=== PATIENT | female | born 1985 | race Hispanic/Latino ===

== ENCOUNTER 2018-11-10 05:28 | Emergency (ER) | payer BC ==
--- OUTSIDE RECORDS SUMMARY | 2018-11-10 05:31 | XMS REPORT | Summary of Care ---
:1985 Author Organization [facility] Address [id number] [place] [id number]- Encounter HQ Nunu_luis carlos(FIN) [id number] Date(s): 01/08/17 - 01/08/[address] [phone] [phone] Discharge Disposition: Home or Self Care Attending Physician: Matt Troy MD Admitting Physician: Matt Troy MD Vital Signs Most recent to oldest [Reference Range]: 1 Height 167.64 cm (01/08/17 1:02 PM) Temperature Oral [96.4-99.1 DegF] 97.8 DegF (01/08/17 12:05 PM) Blood Pressure [90-140/60-90 mmHg] 122/69 mmHg (01/08/17 12:05 PM) Respiratory Rate [14-20 BRMIN] 16 BRMIN (01/08/17 12:05 PM) Peripheral Pulse Rate [60-100 bpm] 80 bpm (01/08/17 12:05 PM) Weight 90.909 kg (01/08/17 1:02 PM) Body Mass Index 32.35 m2 (01/08/17 1:02 PM) Problem List Condition Effective Dates Status Health Status Informant (Confirmed) 03/13/16 Active (Confirmed) 11/04/09 - 07/28/10 Resolved (Confirmed) 01/10/05 - 10/31/05 Resolved Allergies, Adverse Reactions, Alerts Substance Reaction Severity Status NKDA Active Medications No data available for this section Results No data available for this section Immunizations No data available for this section Procedures Procedure Date Related Diagnosis Body Site Tonsillectomy 01/23/98 Social History Social History Type Response Substance Abuse Use: None. Alcohol Past Smoking Status Former smoker; Started at age: 15.0; Previous treatment: None; Ready to change: Yes; Concerns about tobacco use in household: No; Exposure to Tobacco Smoke None; Cigarette Smoking Last 365 Days Yes; Reg Smoking Cessation Counseling No Assessment and Plan No data available for this section
--- OUTSIDE RECORDS SUMMARY | 2018-11-10 05:31 | XMS REPORT | Summary of Care ---
:1985 Author Organization [facility] Address [address] [place] [id number]- Encounter HQ Encntr_alias(FIN) [id number] Date(s): 10/02/16 - 10/31/[address] [phone] [phone] Discharge Disposition: Home or Self Care Attending Physician: Balwinder Lema MD Referring Physician: Rian Lema DDS Vital Signs No data available for this section Problem List No data available for this section Allergies, Adverse Reactions, Alerts No data available for this section Medications No data available for this section Results No data available for this section Immunizations No data available for this section Procedures No data available for this section Social History No data available for this section Assessment and Plan No data available for this section
--- OUTSIDE RECORDS SUMMARY | 2018-11-10 05:31 | XMS REPORT | Continuity of Care Document ---
:1985 Author Organization Interface Problems Problem Status Onset Classification Date Comments Source Date Reported 12/16, 02/17/17, 38 Active 02/08/20 [facility] WEEKS 5 17 [place] DAYS/HYPERTENSIO WEEKLY Active 01/29/20 [facility] 17 [place] NST Active 01/09/20 [facility] 17 [place] GROWTH, SPINE, Active 12/25/19 [facility] CRON 17 [place] HYPERTENTION SCREEN FOR Active 09/14/20 [facility] ANOMALIES 16 [place] Resolved 03/13/20 Problem 03/02/2017 [facility] 16 Hypertension Resolved 09/16/19 Problem 03/02/2017 [place] 16 Pre-eclampsia Active Problem 03/02/2017 [facility] added to pre-existing hypertension Final: Encounter 02/13/2017 [facility] for full-term uncomplicated delivery ENCOUNTER FOR [facility] [place] DELIVERY WITHOUT ANEMIA, Active [facility] 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 [facility] 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 [facility] (PRIMARY) [place] HYPERTENSION ENCOUNTER FOR [facility] FULL-TERM [place] UNCOMPLICATED DE Medications Medication Details Route Status Patient Ordering Order Source Instructions Provider Date Acetaminophen 300 1 tab, PO, Q6H, Active 02/10/ MG / Codeine PRN Pain, X 7 2017 [facility] Phosphate 30 MG day, # 28 tab, Oral Tablet 0 Refill(s) [Tylenol with Codeine #3] ibuprofen 600 mg 600 mg=1 tab, Active oral tablet PO, Q6H, PRN 2017 [facility] Pain Score 1-5, # 30 tab, 0 Refill(s) ferrous sulfate 325 mg=1 tab, Active 02/10/ 325 mg oral PO, BID, # 60 2017 [facility] enteric coated tab, 0 tablet Refill(s) Docusate Sodium 100 mg=1 cap, Active 02/10/ 100 MG Oral PO, BID, # 60 2017 [facility] Capsule [Colace] cap, 0 Refill(s) Acetaminophen 325 1 tab, PO, Q4H, Inactive 02/10/ MG / Hydrocodone PRN Pain Score 2017 [place] Bitartrate 10 MG 7-10, X 14 day, Oral Tablet # 84 tab, 0 Refill(s) labetalol 200 mg 200 mg=1 tab, Active oral tablet PO, Q12H, # 60 2016 [place] tab, 1 Refill(s) 1 tab, Route: No Longer Multivitamins oral PO, Drug Form: Active 2016 [place] tablet TAB, Dosing Weight 100, kg, Daily, Start date: 02/09/17 9:00:00 CDT, Duration: 30 day, Stop date: 03/10/17 9:00:00 CDT Docusate Sodium 100 mg, 1 cap, No Longer 100 MG Oral Route: PO, Drug Active 2016 [place] Capsule [Colace] form: CAP, BID, Dosing Weight 100, kg, Start date: 02/09/17 9:00:00 CDT, Duration: 30 day, Stop date: 03/10/17 17:00:00 CDTNotes: (Same as: Colace) (Do Not Crush) Saline Flush 0.9% 10 ml, Route: No Longer IVP, Drug Form: Active 2016 [facility] INJ, Dosing Weight 100, kg, Q12H, Start date: 02/08/17 21:00:00 CDT, Duration: 30 day, Stop date: 03/10/17 9:00:00 CDTNotes: (Same as: BD Posiflush) Labetalol 200 mg, 1 tab, No Longer Route: PO, Drug Active 2016 [place] form: TAB, Q12H, Dosing Weight 100, kg, Start date: 02/08/17 21:00:00 CDT, Duration: 30 day, Stop date: 03/10/17 9:00:00 CDTNotes: With food. (Same as:Trandate, Normodyne) Ibuprofen 600 mg, 1 tab, No Longer Route: PO, Drug Active 2016 [place] form: TAB, Q6H, Dosing Weight 100, kg, Start date: 02/08/17 18:00:00 CDT, Duration: 30 day, Stop date: 03/10/17 12:00:00 CDTNotes: (Same as: Motrin) "Do Not Crush" Take with food. Acetaminophen 1,000 mg, 100 No Longer mL, Route: IV, Active 2016 [place] Drug form: INJ, Q6H, Dosing Weight 100, kg, Start date: 02/08/17 18:00:00 CDT, Duration: 24 hr, Stop date: 02/09/17 12:00:00 CDTNotes: Infuse over 15 minutes Do not exceed 4gm/day of acetaminophen MEDICATION WASTE Product Size: 1000 mg Product Wasted: ___ mg ferrous sulfate 325 mg, 1 tab, No Longer Route: PO, Drug Active 2016 [place] form: ECTAB, BID, Dosing Weight 100, kg, Start date: 02/08/17 17:00:00 CDT, Duration: 30 day, Stop date: 03/10/17 9:00:00 CDTNotes: Give with food. "Do Not Crush" Acetaminophen 1,000 mg, 2 Inactive tab, Route: PO, 2016 [place] Drug form: TAB, Q6H, Dosing Weight 100, kg, Priority: NOW, Start date: 02/08/17 17:00:00 CDT, Duration: 24 hr, Stop date: 02/09/17 12:00:00 CDTNotes: Max acetaminophen 4000 mg/day (4 gm/day). (Same as: Tylenol Extra Strength) Hydrocodone 1 tab, Route: No Longer Bitartrate 7.5 MG PO, Drug Form: Active 2016 [place] / Ibuprofen 200 MG TAB, Dosing Oral Tablet Weight 100, kg, [Vicoprofen] Q6H, PRN Pain Score 7-10, Start date: 02/08/17 17:00:00 CDT, Duration: 24 hr, Stop date: 02/09/17 16:59:00 CDTNotes: (Same as: Vicoprofen) Ketorolac 30 mg, 1 mL, No Longer Route: IVP, Active 2016 [place] Drug form: INJ, Q6H, Dosing Weight 100, kg, PRN Pain Score 4-6, Start date: 02/08/17 17:00:00 CDT, Duration: 24 hr, Stop date: 02/09/17 16:59:00 CDTNotes: (Same as:Toradol) IV bolus must be given >15 seconds. Give IM administration slowly and deeply into the muscle. Not for use > 4 days MEDICATION WASTE Product Size: 30 mg Product Wasted: ___ mg Oxycodone 10 mg, 2 tab, No Longer MH Hydrochloride 5 MG Route: PO, Drug Active 2016 [place] Oral Tablet form: TAB, Q4H, Dosing Weight 100, kg, PRN Pain Score 7-10, Start date: 02/08/17 17:00:00 CDT, Duration: 30 day, Stop date: 03/10/17 16:59:00 CDTNotes: (Same as: Roxicodone) Oxycodone 5 mg, 5 mL, No Longer Hydrochloride 1 Route: NG, Drug Active 2016 [place] MG/ML Oral form: LIQ, Q4H, Solution Dosing Weight 100, kg, PRN Pain Score 4-6, Start date: 02/08/17 17:00:00 CDT, Duration: 30 day, Stop date: 03/10/17 16:59:00 CDTNotes: (Same as: 'Roxicodone) Meperidine 12.5 mg, 0.5 Inactive mL, Route: IVP, 2016 [place] Drug form: INJ, ONCE, Dosing Weight 100, kg, Start date: 02/08/17 17:00:00 CDT, Stop date: 02/08/17 17:00:00 CDTNotes: (Same as: Demerol) "Use Precaution in Elderly, Seizure disorders, and Renal impairment" Naloxone 0.1 mg, 0.25 No Longer MH mL, Route: Active 2016 [place] SUB-Q, Drug form: INJ, Q6H, Dosing Weight 100, kg, PRN Itching, Start date: 02/08/17 17:00:00 CDT, Duration: 24 hr, Stop date: 02/09/17 16:59:00 CDTNotes: Same as Narcan Diphenhydramine 12.5 mg, 0.5 No Longer MH tab, Route: PO, Active 2016 [place] Drug form: TAB, Q6H, Dosing Weight 100, kg, PRN Itching, Start date: 02/08/17 17:00:00 CDT, Duration: 30 day, Stop date: 03/10/17 16:59:00 CDT Nalbuphine 2 mg, 0.1 mL, No Longer Route: IVP, Active 2016 [place] Drug form: INJ, Q2H, Dosing Weight 100, kg, PRN Itching, Start date: 02/08/17 17:00:00 CDT, Duration: 5 doses or times, Stop date: Limited # of timesNotes: (Same As: Nubain) MEDICATION WASTE Product Size: 20 mg Product Wasted: ___ mg Hydromorphone 0.3 mg, 0.3 mL, No Longer Route: IVP, Active 2016 [place] Drug form: INJ, Q4H, Dosing Weight 100, kg, PRN Pain Score 7-10, Start date: 02/08/17 17:00:00 CDT, Duration: 30 day, Stop date: 03/10/17 16:59:00 CDTNotes: Same as: Dilaudid Ondansetron 4 mg, 2 mL, No Longer Route: IVP, Active 2016 [place] Drug form: INJ, Q6H, Dosing Weight 100, kg, PRN Nausea & Vomiting, Start date: 02/08/17 17:00:00 CDT, Duration: 24 hr, Stop date: 02/09/17 16:59:00 CDTNotes: (Same as: Zofran) MEDICATION WASTE Product Size: 4 mg Product Wasted: ___ mg Promethazine 6.25 mg, 0.25 No Longer mL, Route: Active 2016 [place] IVPB, Q6H, Dosing Weight 100, kg, PRN Nausea & Vomiting, Start date: 02/08/17 17:00:00 CDT, Duration: 24 hr, Stop date: 02/09/17 16:59:00 CDTNotes: Do not give IV push. (Same as: Phenergan) phenylephrine Route: IV, Drug Inactive (ANES) form: INJ, 2017 [place] ONCE, Stop date: 02/08/17 13:59:00 CDT Acetaminophen 325 1 tab, Route: No Longer MG / Hydrocodone PO, Drug Form: Active 2017 [place] Bitartrate 5 MG TAB, Dosing Oral Tablet Weight 100, kg, Q4H, PRN Pain Score 4-6, Start date: 02/08/17 13:55:00 CDT, Duration: 30 day, Stop date: 03/10/17 13:54:00 CDTNotes: (Same as: [place] 325/5) Do not exceed 4gm/day of acetaminophen. Saline Flush 0.9% 10 ml, Route: No Longer IVP, Drug Form: Active 2017 [place] INJ, Dosing Weight 100, kg, PRN, PRN Line Flush, Start date: 02/08/17 13:55:00 CDT, Duration: 30 day, Stop date: 03/10/17 13:54:00 CDTNotes: (Same as: BD Posiflush) Acetaminophen 325 1 tab, Route: No Longer MG / Hydrocodone PO, Drug Form: Active 2017 [place] Bitartrate 10 MG TAB, Dosing Oral Tablet Weight 100, kg, Q4H, PRN Pain Score 7-10, Start date: 02/08/17 13:55:00 CDT, Duration: 30 day, Stop date: 03/10/17 13:54:00 CDTNotes: Do not exceed 4gm/day of acetaminophen. (Same as: [place] 325/10) Simethicone 160 mg, 2 tab, No Longer Route: PO, Drug Active 2016 [place] form: CHE[place]AB, Q8H, Dosing Weight 100, kg, PRN Gas, Start date: 02/08/17 13:55:00 CDT, Duration: 30 day, Stop date: 03/10/17 13:54:00 CDTNotes: (Same as: Mylicon) Acetaminophen 650 mg, 2 tab, No Longer Route: PO, Drug Active 2016 [place] form: TAB, Q4H, Dosing Weight 100, kg, PRN Other -See Comment, Start date: 02/08/17 13:55:00 CDT, Duration: 30 day, Stop date: 03/10/17 13:54:00 CDTNotes: Do not exceed 4 gm/day. (Same as: Tylenol) zolpidem 5 mg, 1 tab, No Longer Route: PO, Drug Active 2016 [place] form: TAB, Bedtime, Dosing Weight 100, kg, PRN Insomnia, Start date: 02/08/17 13:55:00 CDT, Duration: 30 day, Stop date: 03/10/17 13:54:00 CDTNotes: (Same As: Ambien) lanolin topical 1 appl, Route: No Longer cream TOP, PRN, Drug Active 2016 [place] form: CRM, PRN Other -See Comment, Start date: 02/08/17 13:55:00 CDT, Duration: 30 day, Stop date: 03/10/17 13:54:00 CDT Docusate 100 mg, 1 cap, No Longer Route: PO, Drug Active 2016 [place] form: CAP, BID, Dosing Weight 100, kg, PRN Constipation, Start date: 02/08/17 13:55:00 CDT, Duration: 30 day, Stop date: 03/10/17 13:54:00 CDTNotes: (Same as: Colace) (Do Not Crush) Ondansetron 4 mg, 2 mL, No Longer Route: IVP, Active 2016 [place] Drug form: INJ, Q8H, Dosing Weight 100, kg, PRN Nausea & Vomiting, Start date: 02/08/17 13:55:00 CDT, Duration: 30 day, Stop date: 03/10/17 13:54:00 CDTNotes: (Same as: Zofran) MEDICATION WASTE Product Size: 4 mg Product Wasted: ___ mg Oxytocin 30 unit, 500 No Longer mL, Rate: 42 Active 2016 [place] ml/hr, Infuse over: 11.9 hr, Dosing Weight 100, kg, Route: IV, Total Volume: 500 mL, Start date: 02/08/17 13:55:00 CDT, Stop date: 02/10/17 13:54:00 CDT, Replace Every: 11.9 hr Calcium Chloride 1,000 mL, Rate: No Longer 0.0014 MEQ/ML / 125 ml/hr, Active 2016 [place] Potassium Chloride Infuse over: 8 0.004 MEQ/ML / hr, Route: IV, Sodium Chloride Dosing Weight 0.103 MEQ/ML / 100 kg, Total Sodium Lactate Volume: 1,000, 0.028 MEQ/ML Start date: Injectable 02/08/17 Solution 13:55:00 CDT, Duration: 30 day, Stop date: 03/10/17 13:54:00 CDT Bisacodyl 15 mg, 3 tab, No Longer Route: PO, Drug Active 2016 [place] form: ECTAB, Daily, Dosing Weight 100, kg, PRN Other -See Comment, Start date: 02/08/17 13:55:00 CDT, Duration: 30 day, Stop date: 03/10/17 13:54:00 CDTNotes: (Same As: Dulcolax, Correctol) (Do Not Crush) "Do Not Crush" hydromorphone Route: IV, Drug Inactive (ANES) form: INJ, 2016 [place] ONCE, Stop date: 02/08/17 13:29:00 CDT ondansetron (ANES) Route: IV, Drug Inactive form: INJ, 2016 [place] ONCE, Stop date: 02/08/17 13:29:00 CDT hydromorphone Route: Inactive (ANES) INTRATHECAL, 2016 [place] Drug form: INJ, ONCE, Stop date: 02/08/17 13:24:00 CDT bupivacaine (ANES) Route: IV, Drug Inactive Form: INJ, 2016 [place] ONCE, Stop date: 02/08/17 13:15:00 CDT oxytocin (ANES) Route: IV, Drug Inactive MH (ANES) form: SOLN, 2016 [place] Start date: 02/08/17 12:51:00 CDT, Stop date: 02/08/17 13:51:00 CDT ceFAZolin (ANES) Route: IV, Drug Inactive form: INJ, 2016 [place] ONCE, Stop date: 02/08/17 12:51:00 CDT LR 1000 mL INJ Route: IV, Inactive MH (ANES) Total Volume: 2016 [place] 1,000, Start date: 02/08/17 12:10:00 CDT, Stop date: 02/08/17 13:10:00 CDT Famotidine 20 mg, 2 mL, Inactive Route: IVP, 2016 [place] Drug form: INJ, ONCE, Dosing Weight 100, kg, Start date: 02/08/17 11:05:00 CDT, Duration: 1 doses or times, Stop date: 02/08/17 11:05:00 CDTNotes: (Same as: Pepcid) Can be dilute in 5-10cc NS IVP: Slow IV push over at least 2 minutes. Cefazolin 2 gm, 100 mL, Inactive Route: IVPB, 2016 [place] Drug form: INJ, ONCALL, Dosing Weight 100, kg, Start date: 02/08/17 11:00:00 CDT, Duration: 1 doses or times, ABX Indication: Surgical ProphylaxisNote s: Same as: Ancef Methylergonovine 0.2 mg, 1 mL, Inactive Route: IM, Drug 2016 [place] form: INJ, ONCALL, Dosing Weight 100, kg, Start date: 02/08/17 11:00:00 CDT, Duration: 30 day, Stop date: 03/10/17 10:59:00 CDTNotes: (Same as:Methergine) Carboprost 250 microgram, Inactive 1 mL, Route: 2016 [place] IM, Drug form: INJ, ONCALL, Dosing Weight 100, kg, Start date: 02/08/17 11:00:00 CDT, Duration: 30 day, Stop date: 03/10/17 10:59:00 CDTNotes: (Same As: Hemabate) Misoprostol 1,000 Inactive microgram, 5 2016 [place] tab, Route: AK, Drug form: TAB, ONCALL, Dosing Weight 100, kg, Start date: 02/08/17 11:00:00 CDT, Duration: 30 day, Stop date: 03/10/17 10:59:00 CDTNotes: (Same as:Cytotec) Take with food busPIRone 7.5 mg 7.5 mg=1 tab, No Longer oral tablet PO, Daily, 0 Active 2016 [place] Refill(s) labetalol 100 mg 100 mg=1 tab, No Longer oral tablet PO, BID, 0 Active 2016 [place] Refill(s) PNV-Total 1 cap, PO, Active Daily, 0 2016 [place] Refill(s) Morphine 2 mg, 1 mL, Inactive Route: IVP, 2016 [place] Drug form: INJ, Q2H, Dosing Weight 100, kg, PRN Pain Score 7-10, Start date: 02/08/17 10:30:00 CDT, Duration: 30 day, Stop date: 03/10/17 10:29:00 CDTNotes: (Same as:MORPhine Sulfate) Metoclopramide 10 mg, 2 mL, Inactive Route: IVP, 2016 [place] Drug form: INJ, Q6H, Dosing Weight 100, kg, PRN Nausea & Vomiting, Start date: 02/08/17 10:30:00 CDT, Duration: 30 day, Stop date: 03/10/17 10:29:00 CDTNotes: (Same as: Reglan) Ondansetron 4 mg, 2 mL, Inactive Route: IVP2016 [place] Drug form: INJ, Q8H, Dosing Weight 100, kg, PRN Nausea & Vomiting, Start date: 02/08/17 10:30:00 CDT, Duration: 30 day, Stop date: 03/10/17 10:29:00 CDTNotes: (Same as: Zofran) MEDICATION WASTE Product Size: 4 mg Product Wasted: ___ mg Citric Acid / 30 mL, Route: Inactive sodium citrate PO, Drug Form: 2016 [place] SOLN, Dosing Weight 100, kg, ONCE, Start date: 02/08/17 10:30:00 CDT, Duration: 1 doses or times, Stop date: 02/08/17 10:30:00 CDTNotes: (Same As: Bicitra) Terbutaline 0.25 mg, 0.25 Inactive mL, Route: 2016 [place] SUB-Q, Drug form: INJ, ONCALL, Dosing Weight 100, kg, PRN Other -See Comment, Start date: 02/08/17 10:30:00 CDT, Duration: 1 doses or times, Stop date: Limited # of timesNotes: DO NOT USE IN [employer] AREA (Same As: Kevin) Oxytocin 30 unit, 500 Inactive mL, Rate: 42 2017 [place] ml/hr, Infuse over: 11.9 hr, Dosing Weight 100, kg, Route: IV, Total Volume: 500 mL, Start date: 02/08/17 10:30:00 CDT, Duration: 1 doses or times, Stop date: 02/08/17 22:23:00 CDT, Replace Every: 11.9 hrNotes: (Same as: OXYTOCIN-D5LR) Calcium Chloride 1,000 mL, 1,000 Inactive 0.0014 MEQ/ML / ml/hr, Infuse 2016 [place] Potassium Chloride Over: 1 hr, 0.004 MEQ/ML / Route: IV, Sodium Chloride 1,000, Drug 0.103 MEQ/ML / form: INJ, Sodium Lactate ONCE, Dosing 0.028 MEQ/ML Weight 100 kg, Injectable Start date: Solution 02/08/17 10:30:00 CDT, Stop date: 02/08/17 10:30:00 CDT Allergies, Adverse Reactions, Alerts Substance Category Reaction Severity Reaction Status Date Comments Source type Reported Immunizations Immunization Date Given Site Status Last Updated Comments Source diphtheria/pertus 02/10/2017 Not Given [facility] sis, acel/tetanus adult measles/mumps/rub 02/10/2017 Not Given [facility] luke virus vaccine Results Order Name Results Value Reference Date Interpretation Comments Source Range HEMATOLOGY Segs 77.5 % 45.0 - 75.0 02/09 [facility] HEMATOLOGY Lymphocytes 11.8 % 20.0 - 40.0 02/09 [facility] HEMATOLOGY Monocytes 9.4 % 2.0 - 12.0 02/09 [place] HEMATOLOGY Eosinophils 0.8 % 0.0 - 4.0 02/09 [facility] HEMATOLOGY Basophils 0.5 % 0.0 - 1.0 02/09 [facility] HEMATOLOGY Segs-Bands # 11.9 K/CMM 1.5 - 8.1 02/09 [facility] HEMATOLOGY Monocytes # 1.4 K/CMM 0.0 - 0.8 02/09 [facility] HEMATOLOGY Eosinophils # 0.1 K/CMM 0.0 - 0.5 02/09 [facility] HEMATOLOGY Basophils # 0.1 K/CMM 0.0 - 0.2 02/09 [facility] HEMATOLOGY Lymphocytes # 1.8 K/CMM 1.0 - 5.5 02/09 [facility] HEMATOLOGY MPV 7.3 fL 7.4 - 10.4 02/09 [facility] HEMATOLOGY WBC X 10x3 15.3 K/CMM 3.7 - 10.4 02/09 [facility] HEMATOLOGY RBC X 10x6 3.79 M/CMM 4.20 - 5.40 02/09 [facility] HEMATOLOGY Hgb 10.5 g/dL 12.0 - 16.0 02/09 [facility] HEMATOLOGY MCH 27.7 pg 27.0 - 31.0 02/09 [facility] HEMATOLOGY MCV 84.1 fL 80.0 - 98.0 02/09 [facility] HEMATOLOGY Hct 31.8 % 36.0 - 48.0 02/09 [facility] HEMATOLOGY RDW 14.6 % 11.5 - 14.5 02/09 [facility] HEMATOLOGY MCHC 33.0 g/dL 32.0 - 36.0 02/09 [facility] HEMATOLOGY Platelet 314 K/CMM 133 - 450 02/09 [facility] BLOOD BANK ABO/Rh A POS 02/08 [facility] BLOOD BANK Rhig Reqd See Note 1 02/08 Result Comment: 02/08/2017 12:12 [id number] This patient is not a candidate for Rh(O)D immune globulin. [facility] (02/08/17 11:12 AM) BLOOD BANK Antibody Scrn Negative 02/08 [facility] (02/08/17 11:12 AM) HEMATOLOGY RBC X 10x6 4.11 M/CMM 4.20 - 5.40 02/08 [facility] HEMATOLOGY Hgb 11.4 g/dL 12.0 - 16.0 02/08 [facility] HEMATOLOGY WBC X 10x3 11.7 K/CMM 3.7 - 10.4 02/08 [facility] HEMATOLOGY MCH 27.9 pg 27.0 - 31.0 02/08 [facility] HEMATOLOGY MCV 82.5 fL 80.0 - 98.0 02/08 [facility] HEMATOLOGY Hct 33.9 % 36.0 - 48.0 02/08 [facility] HEMATOLOGY Platelet 330 K/CMM 133 - 450 02/08 [facility] HEMATOLOGY MPV 7.4 fL 7.4 - 10.4 02/08 [facility] HEMATOLOGY RDW 15.2 % 11.5 - 14.5 02/08 [facility] HEMATOLOGY MCHC 33.8 g/dL 32.0 - 36.0 02/08 [facility] HEMATOLOGY Lymphocytes # 2.1 K/CMM 1.0 - 5.5 02/08 [facility] HEMATOLOGY Segs-Bands # 8.6 K/CMM 1.5 - 8.1 02/08 [facility] HEMATOLOGY Basophils 0.4 % 0.0 - 1.0 02/08 [facility] HEMATOLOGY Eosinophils # 0.1 K/CMM 0.0 - 0.5 02/08 [facility] HEMATOLOGY Monocytes # 0.9 K/CMM 0.0 - 0.8 02/08 [facility] HEMATOLOGY Lymphocytes 17.7 % 20.0 - 40.0 02/08 [facility] HEMATOLOGY Segs 73.5 % 45.0 - 75.0 02/08 [facility] HEMATOLOGY Eosinophils 1.1 % 0.0 - 4.0 02/08 [facility] HEMATOLOGY Monocytes 7.3 % 2.0 - 12.0 02/08 [facility] IMMUNOLOGY Treponemal Non Reactive Non 02/08 Sc[facility] Reactive /2016 [facility] *NA* (02/08/17 11:12 AM) IMMUNOLOGY Hep Bs Ag Negative Negative 02/08 [facility] *NA* (02/08/17 11:12 AM) IMMUNOLOGY HIV. Negative Negative 02/08 [facility] (02/08/17 11:12 AM) Vital Signs Vital Sign Value Date Comments Source Systolic (mm Hg) 124 02/10/2017 [facility] Diastolic (mm Hg) 74 02/10/2017 [facility] Temperature Oral (F) 98.6 F 02/10/2017 [facility] Respitory Rate 18 02/10/2017 [facility] Respitory Rate 16 02/10/2017 [facility] Systolic (mm Hg) 125 02/10/2017 [facility] Diastolic (mm Hg) 72 02/10/2017 [facility] Respitory Rate 16 02/10/2017 [facility] Systolic (mm Hg) 123 02/09/2017 [facility] Diastolic (mm Hg) 69 02/09/2017 [facility] Temperature Oral (F) 97.7 F 02/08/2017 [facility] Temperature Oral (F) 98.5 F 02/08/2017 [facility] Height 167.64 cm 02/08/2017 [facility] Weight 100 02/08/2017 [facility] BMI Calculated 35.58 02/08/2017 [facility] BMI Calculated 32.35 01/08/2017 [facility] Weight 90.909 01/08/2017 [facility] Height 167.64 cm 01/08/2017 [facility] Temperature Oral (F) 97.8 F 01/08/2017 [facility] Systolic (mm Hg) 122 01/08/2017 [facility] Diastolic (mm Hg) 69 01/08/2017 [facility] Respitory Rate 16 01/08/2017 [facility] Heart Rate 80 01/08/2017 [facility] Encounters Location Location Encounter Encounter Reason Attending ADM DC Status Source Details Type Number For Provider Date Date Visit [facility] [id number] [facility] 10/02 11/01 [facility] /2016 [facility] Observation [id number] Matt 01/08 01/08 [facility] /2016 [facility] Recurring [id number] Balwinder 01/29 02/28 [facility] /2016 [facility] Inpatient [id number] Balwinder 02/08 02/10 [facility] /2016 [facility] Procedures Procedure Code Date Perfomer Comments Source section [id number] 09/16/2008 [facility] section [id number] 09/16/2005 [facility] Dilation and [id number] 09/16/2000 [facility] curettage Tonsillectomy [id number] 01/23/1998 [facility]
--- OUTSIDE RECORDS SUMMARY | 2018-11-10 05:32 | XMS REPORT | Summary of Care ---
:1985 Author Organization [facility] Address [id number] [place] [id number]- Encounter HQ Nunu_luis carlos(FIN) [id number] Date(s): 02/08/17 - 02/10/[address] [phone] [phone] Final: Encounter for full-term uncomplicated delivery Final: Encounter for full-term uncomplicated delivery Discharge Disposition: Home or Self Care Attending Physician: Balwinder Lema MD Admitting Physician: Balwinder Lema MD Referring Physician: Balwinder Lema MD Vital Signs Most recent to oldest 1 2 3 [Reference Range]: Height 167.64 cm (02/08/17 10:27 AM) Temperature Oral [96.4-99.1 98.6 DegF 97.7 DegF 98.5 DegF DegF] (02/10/17 9:15 AM) (02/08/17 2:00 PM) (02/08/17 10:45 AM) Blood Pressure [90-140/60-90 125/72 mmHg 123/69 mmHg mmHg] (02/09/17 7:37 PM) (02/09/17 5:10 PM) Systolic Blood Pressure 124 mmHg [90-140 mmHg] (02/10/17 9:15 AM) Diastolic Blood Pressure 74 mmHg [60-90 mmHg] (02/10/17 9:15 AM) Respiratory Rate [14-20 18 BRMIN 16 BRMIN 16 BRMIN BRMIN] (02/10/17 9:15 AM) (02/10/17 12:25 AM) (02/09/17 7:37 PM) Weight 100 kg (02/08/17 10:27 AM) Body Mass Index 35.58 m2 (02/08/17 10:27 AM) Problem List Condition Effective Dates Status Health Status Informant Hypertension(Confirmed) 2016 Resolved Pre-eclampsia added to Active pre-existing hypertension(Confirmed) (Confirmed) 03/13/16 - 02/08/17 Resolved (Confirmed) 11/04/09 - 07/28/10 Resolved (Confirmed) 01/10/05 - 10/31/05 Resolved Allergies, Adverse Reactions, Alerts Substance Reaction Severity Status NKDA Active Medications acetaminophen 650 mg, 2 tab, Route: PO, Drug form: TAB, Q4H, Dosing Weight 100, kg, PRN Other -See Comment, Start date: 02/08/17 13:55:00 CDT, Duration: 30 day, Stop date: 13:54:00 CDT Notes: Do not exceed 4 gm/day. (Same as: Tylenol) Start Date: 02/08/17 Stop Date: 02/10/17 Status: Discontinuedacetaminophen 1,000 mg, 100 mL, Route: IV, Drug form: INJ, Q6H, Dosing Weight 100, kg, Start date: 02/08/17 18:00:00 CDT, Duration: 24 hr, Stop date: 02/09/17 12:00:00 CDT Notes: Infuse over 15 minutesDo not exceed 4gm/day of acetaminophen MEDICATION WASTE ProductSize: 1000 mgProduct Wasted: ___ mg Start Date: 02/08/17 Stop Date: 02/09/17 Status: Completedacetaminophen 1,000 mg, 2 tab, Route: PO, Drug form: TAB, Q6H, Dosing Weight 100, kg, Priority : NOW, Start date: 02/08/17 17:00:00 CDT, Duration: 24 hr, Stop date: 02/09/17 12:00:00 CDT Notes: Max acetaminophen 4000 mg/day (4 gm/day). (Same as: Tylenol Extra Strength) Start Date: 02/08/17 Stop Date: 02/08/17 Status: Discontinuedacetaminophen-hydrocodone 325 mg-10 mg oral tablet 1 tab, Route: PO, Drug Form: TAB, Dosing Weight 100, kg, Q4H, PRN Pain Score 7- 10, Start date: 02/08/17 13:55:00 CDT, Duration: 30 day, Stop date: 03/10/17 13: 54:00 CDT Notes: Do not exceed 4gm/day of acetaminophen. (Same as: Confluence 325/10) Start Date: 02/08/17 Stop Date: 02/10/17 Status: Discontinuedacetaminophen-hydrocodone 325 mg-10 mg oral tablet 1 tab, PO, Q4H, PRN Pain Score 7-10, X 14 day, # 84 tab, 0 Refill(s) Start Date: 02/10/17 Stop Date: 02/10/17 Status: Discontinuedacetaminophen-hydrocodone 325 mg-5 mg oral tablet 1 tab, Route: PO, Drug Form: TAB, Dosing Weight 100, kg, Q4H, PRN Pain Score 4-6 , Start date: 02/08/17 13:55:00 CDT, Duration: 30 day, Stop date: 03/10/17 13:54 :00 CDT Notes: (Same as: Confluence 325/5) Do not exceed 4gm/day of acetaminophen. Start Date: 02/08/17 Stop Date: 02/10/17 Status: Discontinuedbisacodyl 15 mg, 3 tab, Route: PO, Drug form: ECTAB, Daily, Dosing Weight 100, kg, PRN Other -See Comment, Start date: 02/08/17 13:55:00 CDT, Duration: 30 day, Stop date: 03/10/17 13:54:00 CDT Notes: (Same As: Dulcolax, Correctol) (Do Not Crush) "Do Not Crush" Start Date: 02/08/17 Stop Date: 02/10/17 Status: Discontinuedbisacodyl 10 mg, 1 supp, Route: FL, Drug form: SUPP, PRN, Dosing Weight 100, kg, PRN Other -See Comment, Startdate: 02/08/17 13:55:00 CDT, Duration: 30 day, Stop date: 03/10/17 13:54:00 CDT Notes: (Same As: Dulcolax, Bisco-Lax) Start Date: 02/08/17 Stop Date: 02/10/17 Status: Discontinuedbupivacaine (ANES) Route: IV, Drug Form: INJ, ONCE, Stop date: 02/08/17 13:15:00 CDT Start Date: 02/08/17 Stop Date: 02/08/17 Status: CompletedbusPIRone 7.5 mg oral tablet 7.5 mg=1 tab, PO, Daily, 0 Refill(s) Start Date: 02/08/17 Stop Date: 02/10/17 Status: Discontinuedcarboprost 250 microgram, 1 mL, Route: IM, Drug form: INJ, ONCALL, Dosing Weight 100, kg, Start date: 02/08/17 11:00:00 CDT, Duration: 30 day, Stop date: 03/10/17 10:59: 00 CDT Notes: (Same As: Hemabate) Start Date: 02/08/17 Stop Date: 02/08/17 Status: DiscontinuedceFAZolin 2 gm, 100 mL, Route: IVPB, Drug form: INJ, ONCALL, Dosing Weight 100, kg, Start date: 02/08/17 11:00:00 CDT, Duration: 1 doses or times, ABX Indication: Surgical Prophylaxis Notes: Same as: Ancef Start Date: 02/08/17 Stop Date: 02/08/17 Status: DiscontinuedceFAZolin (ANES) Route: IV, Drug form: INJ, ONCE, Stop date: 02/08/17 12:51:00 CDT Start Date: 02/08/17 Stop Date: 02/08/17 Status: Completedcitric acid-sodium citrate 30 mL, Route: PO, Drug Form: SOLN, Dosing Weight 100, kg, ONCE, Start date: 10:30:00 CDT, Duration: 1 doses or times, Stop date: 02/08/17 10:30:00 CDT Notes: (Same As: Bicitra) Start Date: 02/08/17 Stop Date: 02/08/17 Status: CompletedColace 100 mg oral capsule 100 mg, 1 cap, Route: PO, Drug form: CAP, BID, Dosing Weight 100, kg, Start date : 02/09/17 9:00:00 CDT, Duration: 30 day, Stop date: 03/10/17 17:00:00 CDT Notes: (Same as: Colace) (Do Not Crush) Start Date: 02/09/17 Stop Date: 02/10/17 Status: DiscontinuedColace 100 mg oral capsule 100 mg=1 cap, PO, BID, # 60 cap, 0 Refill(s) Start Date: 02/10/17 Status: OrdereddiphenhydrAMINE 12.5 mg, 0.5 tab, Route: PO, Drug form: TAB, Q6H, Dosing Weight 100, kg, PRN Itching, Start date: 02/08/17 17:00:00 CDT, Duration: 30 day, Stop date: 16:59:00 CDT Start Date: 02/08/17 Stop Date: 02/10/17 Status: Discontinueddocusate 100 mg, 1 cap, Route: PO, Drug form: CAP, BID, Dosing Weight 100, kg, PRN Constipation, Start date: 02/08/17 13:55:00 CDT, Duration: 30 day, Stop date: 13:54:00 CDT Notes: (Same as: Colace) (Do Not Crush) Start Date: 02/08/17 Stop Date: 02/10/17 Status: Discontinuedfamotidine 20 mg, 2 mL, Route: IVP, Drug form: INJ, ONCE, Dosing Weight 100, kg, Start date : 02/08/17 11:05:00 CDT, Duration: 1 doses or times, Stop date: 02/08/17 11:05: 00 CDT Notes: (Same as: Pepcid)Can be dilute in 5-10cc NS IVP: Slow IV push over at least 2 minutes. Start Date: 02/08/17 Stop Date: 02/08/17 Status: Completedferrous sulfate 325 mg, 1 tab, Route: PO, Drug form: ECTAB, BID, Dosing Weight 100, kg, Start date: 02/08/17 17:00:00 CDT, Duration: 30 day, Stop date: 03/10/17 9:00:00 CDT Notes: Give with food. "Do Not Crush" Start Date: 02/08/17 Stop Date: 02/10/17 Status: Discontinuedferrous sulfate 325 mg oral enteric coated tablet 325 mg=1 tab, PO, BID, # 60 tab, 0 Refill(s) Start Date: 02/10/17 Status: Orderedhydromorphone 0.3 mg, 0.3 mL, Route: IVP, Drug form: INJ, Q4H, Dosing Weight 100, kg, PRN Pain Score 7-10, Start date: 02/08/17 17:00:00 CDT, Duration: 30 day, Stop date : 03/10/17 16:59:00 CDT Notes: Same as: Dilaudid Start Date: 02/08/17 Stop Date: 02/10/17 Status: Discontinuedhydromorphone (ANES) Route: IV, Drug form: INJ, ONCE, Stop date: 02/08/17 13:29:00 CDT Start Date: 02/08/17 Stop Date: 02/08/17 Status: Completedhydromorphone (ANES) Route: INTRATHECAL, Drug form: INJ, ONCE, Stop date: 02/08/17 13:24:00 CDT Start Date: 02/08/17 Stop Date: 02/08/17 Status: Completedibuprofen 600 mg, 1 tab, Route: PO, Drug form: TAB, Q6H, Dosing Weight 100, kg, Start date : 02/08/17 18:00:00 CDT, Duration: 30 day, Stop date: 03/10/17 12:00:00 CDT Notes: (Same as: Motrin)"Do Not Crush" Take with food. Start Date: 02/08/17 Stop Date: 02/10/17 Status: Discontinuedibuprofen 600 mg oral tablet 600 mg=1 tab, PO, Q6H, PRN Pain Score 1-5, # 30 tab, 0 Refill(s) Start Date: 02/10/17 Stop Date: 03/13/17 Status: OrderedketOROLAC 30 mg, 1 mL, Route: IVP, Drug form: INJ, Q6H, Dosing Weight 100, kg, PRN Pain Score 4-6, Start date:02/08/17 17:00:00 CDT, Duration: 24 hr, Stop date: 16:59:00 CDT Notes: (Same as:Toradol) IV bolus must be given >15 seconds. Give IM administration slowly and deeply into the muscle.Not for use > 4 days MEDICATION WASTE Product Size: 30 mgProduct Wasted: ___ mg Start Date: 02/08/17 Stop Date: 02/09/17 Status: Completedlabetalol 200 mg, 1 tab, Route: PO, Drug form: TAB, Q12H, Dosing Weight 100, kg, Start date: 02/08/17 21:00:00CDT, Duration: 30 day, Stop date: 03/10/17 9:00:00 CDT Notes: With food. (Same as:Trandate, Normodyne) Start Date: 02/08/17 Stop Date: 02/10/17 Status: Discontinuedlabetalol 100 mg oral tablet 100 mg=1 tab, PO, BID, 0 Refill(s) Start Date: 02/08/17 Stop Date: 02/10/17 Status: Discontinuedlabetalol 200 mg oral tablet 200 mg=1 tab, PO, Q12H, # 60 tab, 1 Refill(s) Start Date: 02/10/17 Status: OrderedLactated Ringers (Bolus) IV 1,000 mL, 1,000 ml/hr, Infuse Over: 1 hr, Route: IV, 1,000, Drug form: INJ, ONCE , Dosing Weight 100 kg, Start date: 02/08/17 10:30:00 CDT, Stop date: 02/08/17 10:30:00 CDT Start Date: 02/08/17 Stop Date: 02/08/17 Status: CompletedLactated Ringers 1,000 mL 1,000 mL, Rate: 125 ml/hr, Infuse over: 8 hr, Route: IV, Dosing Weight 100 kg, Total Volume: 1,000, Start date: 02/08/17 13:55:00 CDT, Duration: 30 day, Stop date: 03/10/17 13:54:00 CDT Start Date: 02/08/17 Stop Date: 02/10/17 Status: DiscontinuedLactated Ringers 1,000 mL 1,000 mL, Rate: 125 ml/hr, Infuse over: 8 hr, Route: IV, Dosing Weight 100 kg, Total Volume: 1,000, Start date: 02/08/17 10:30:00 CDT, Duration: 30 day, Stop date: 03/10/17 10:29:00 CDT Start Date: 02/08/17 Stop Date: 02/08/17 Status: Discontinuedlanolin topical cream 1 appl, Route: TOP, PRN, Drug form: CRM, PRN Other -See Comment, Start date: 13:55:00 CDT, Duration: 30 day, Stop date: 03/10/17 13:54:00 CDT Start Date: 02/08/17 Stop Date: 02/10/17 Status: DiscontinuedLR 1000 mL INJ (ANES) Route: IV, Total Volume: 1,000, Start date: 02/08/17 12:10:00 CDT, Stop date: 13:10:00 CDT Start Date: 02/08/17 Stop Date: 02/08/17 Status: Completedmeperidine 12.5 mg, 0.5 mL, Route: IVP, Drug form: INJ, ONCE, Dosing Weight 100, kg, Start date: 02/08/17 17:00:00 CDT, Stop date: 02/08/17 17:00:00 CDT Notes: (Same as: Demerol) "Use Precaution in Elderly, Seizure disorders, and Renal impairment" Start Date: 02/08/17 Stop Date: 02/08/17 Status: Completedmethylergonovine 0.2 mg, 1 mL, Route: IM, Drug form: INJ, ONCALL, Dosing Weight 100, kg, Start date: 02/08/17 11:00:00 CDT, Duration: 30 day, Stop date: 03/10/17 10:59:00 CDT Notes: (Same as:Methergine) Start Date: 02/08/17 Stop Date: 02/08/17 Status: Discontinuedmetoclopramide 10 mg, 2 mL, Route: IVP, Drug form: INJ, Q6H, Dosing Weight 100, kg, PRN Nausea & Vomiting, Start date: 02/08/17 10:30:00 CDT, Duration: 30 day, Stop date: 03/10/17 10:29:00 CDT Notes: (Same as: Reglan) Start Date: 02/08/17 Stop Date: 02/08/17 Status: Discontinuedmisoprostol 1,000 microgram, 5 tab, Route: FL, Drug form: TAB, ONCALL, Dosing Weight 100, kg , Start date: 02/08/17 11:00:00 CDT, Duration: 30 day, Stop date: 03/10/17 10:59 :00 CDT Notes: (Same as:Cytotec) Take with food Start Date: 02/08/17 Stop Date: 02/08/17 Status: Discontinuedmorphine Sulfate 2 mg, 1 mL, Route: IVP, Drug form: INJ, Q2H, Dosing Weight 100, kg, PRN Pain Score 7-10, Start date:02/08/17 10:30:00 CDT, Duration: 30 day, Stop date: 03/10 10:29:00 CDT Notes: (Same as:MORPhine Sulfate) Start Date: 02/08/17 Stop Date: 02/08/17 Status: Discontinuednalbuphine 2 mg, 0.1 mL, Route: IVP, Drug form: INJ, Q2H, Dosing Weight 100, kg, PRN Itching, Start date: 02/08/17 17:00:00 CDT, Duration: 5 doses or times, Stop date: Limited # of times Notes: (Same As: Geoffrey) MEDICATION WASTE Product Size: 20 mgProduct Wasted: ___ mg Start Date: 02/08/17 Stop Date: 02/10/17 Status: Discontinuednaloxone 0.1 mg, 0.25 mL, Route: SUB-Q, Drug form: INJ, Q6H, Dosing Weight 100, kg, PRN Itching, Start date: 02/08/17 17:00:00 CDT, Duration: 24 hr, Stop date: 16:59:00 CDT Notes: Same as Narcan Start Date: 02/08/17 Stop Date: 02/09/17 Status: Completednaloxone 0.4 mg, 1 mL, Route: IVP, Drug form: INJ, ONCALL, Dosing Weight 100, kg, Start date: 02/08/17 17:00:00 CDT, Duration: 24 hr, Stop date: 02/09/17 16:59:00 CDT Notes: Same as Narcan Start Date: 02/08/17 Stop Date: 02/10/17 Status: Discontinuedondansetron 4 mg, 2 mL, Route: IVP, Drug form: INJ, Q8H, Dosing Weight 100, kg, PRN Nausea & amp; Vomiting, Startdate: 02/08/17 13:55:00 CDT, Duration: 30 day, Stop date: 13:54:00 CDT Notes: (Same as: Zofran) MEDICATION WASTE Product Size: 4 mgProduct Wasted: ___ mg Start Date: 02/08/17 Stop Date: 02/10/17 Status: Discontinuedondansetron 4 mg, 2 mL, Route: IVP, Drug form: INJ, Q8H, Dosing Weight 100, kg, PRN Nausea & amp; Vomiting, Startdate: 02/08/17 10:30:00 CDT, Duration: 30 day, Stop date: 10:29:00 CDT Notes: (Same as: Zofrraegan) MEDICATION WASTE Product Size: 4 mgProduct Wasted: ___ mg Start Date: 02/08/17 Stop Date: 02/08/17 Status: Discontinuedondansetron 4 mg, 2 mL, Route: IVP, Drug form: INJ, Q6H, Dosing Weight 100, kg, PRN Nausea & amp; Vomiting, Startdate: 02/08/17 17:00:00 CDT, Duration: 24 hr, Stop date: 16:59:00 CDT Notes: (Same as: Zofrraegan) MEDICATION WASTE Product Size: 4 mgProduct Wasted: ___ mg Start Date: 02/08/17 Stop Date: 02/09/17 Status: Completedondansetron (ANES) Route: IV, Drug form: INJ, ONCE, Stop date: 02/08/17 13:29:00 CDT Start Date: 02/08/17 Stop Date: 02/08/17 Status: CompletedoxyCODONE 5 mg immediate release 10 mg, 2 tab, Route: PO, Drug form: TAB, Q4H, Dosing Weight 100, kg, PRN Pain Score 7-10, Start date: 02/08/17 17:00:00 CDT, Duration: 30 day, Stop date: 16:59:00 CDT Notes: (Same as: Roxicodone) Start Date: 02/08/17 Stop Date: 02/10/17 Status: DiscontinuedoxyCODONE 5 mg immediate release 5 mg, 1 tab, Route: PO, Drug form: TAB, Q4H, Dosing Weight 100, kg, PRN Pain Score 4-6, Start date: 02/08/17 17:00:00 CDT, Duration: 30 day, Stop date: 03/10 16:59:00 CDT Notes: (Same as: Roxicodone) Start Date: 02/08/17 Stop Date: 02/10/17 Status: DiscontinuedoxyCODONE 5 mg/5 mL oral solution 5 mg, 5 mL, Route: NG, Drug form: LIQ, Q4H, Dosing Weight 100, kg, PRN Pain Score 4-6, Start date: 02/08/17 17:00:00 CDT, Duration: 30 day, Stop date: 03/10 16:59:00 CDT Notes: (Same as: 'Roxicodone) Start Date: 02/08/17 Stop Date: 02/10/17 Status: DiscontinuedoxyCODONE 5 mg/5 mL oral solution 10 mg, 10 mL, Route: NG, Drug form: LIQ, Q4H, Dosing Weight 100, kg, PRN Pain Score 7-10, Start date: 02/08/17 17:00:00 CDT, Duration: 30 day, Stop date: 16:59:00 CDT Notes: (Same as: 'Roxicodone) Start Date: 02/08/17 Stop Date: 02/10/17 Status: Discontinuedoxytocin (ANES) (ANES) Route: IV, Drug form: SOLN, Start date: 02/08/17 12:51:00 CDT, Stop date: 13:51:00 CDT Start Date: 02/08/17 Stop Date: 02/08/17 Status: Completedoxytocin 30 unit in D5LR 500mL 30 unit 30 unit, 500 mL, Rate: 42 ml/hr, Infuse over: 11.9 hr, Dosing Weight 100, kg, Route: IV, Total Volume: 500 mL, Start date: 02/08/17 10:30:00 CDT, Duration: 1 doses or times, Stop date: 02/08/17 22:23:00 CDT, Replace Every: 11.9 hr Notes: (Same as: OXYTOCIN-D5LR) Start Date: 02/08/17 Stop Date: 02/08/17 Status: Discontinuedoxytocin 30 units/NS 500 ml 30 unit 30 unit, 500 mL, Rate: 42 ml/hr, Infuse over: 11.9 hr, Dosing Weight 100, kg, Route: IV, Total Volume: 500 mL, Start date: 02/08/17 13:55:00 CDT, Stop date: 02/10/17 13:54:00 CDT, Replace Every: 11.9 hr Start Date: 02/08/17 Stop Date: 02/10/17 Status: Completedphenylephrine (ANES) Route: IV, Drug form: INJ, ONCE, Stop date: 02/08/17 13:59:00 CDT Start Date: 02/08/17 Stop Date: 02/08/17 Status: CompletedPNV-Total 1 cap, PO, Daily, 0 Refill(s) Start Date: 02/08/17 Status: OrderedPrenatal Multivitamins oral tablet 1 tab, Route: PO, Drug Form: TAB, Dosing Weight 100, kg, Daily, Start date: 9:00:00 CDT, Duration: 30 day, Stop date: 03/10/17 9:00:00 CDT Start Date: 02/09/17 Stop Date: 02/10/17 Status: Discontinuedpromethazine + sodium chloride 0.9% INJ 50 mL 6.25 mg, 0.25 mL, Route: IVPB, Q6H, Dosing Weight 100, kg, PRN Nausea & Vomiting, Start date: 02/08/17 17:00:00 CDT, Duration: 24 hr, Stop date: 16:59:00 CDT Notes: Do not give IV push. (Same as: Phenergan) Start Date: 02/08/17 Stop Date: 02/09/17 Status: CompletedSaline Flush 0.9% 10 ml, Route: IVP, Drug Form: INJ, Dosing Weight 100, kg, Q12H, Start date: 21:00:00 CDT, Duration: 30 day, Stop date: 03/10/17 9:00:00 CDT Notes: (Same as: BD Posiflush) Start Date: 02/08/17 Stop Date: 02/10/17 Status: DiscontinuedSaline Flush 0.9% 10 ml, Route: IVP, Drug Form: INJ, Dosing Weight 100, kg, PRN, PRN Line Flush, Start date: 02/08/17 13:55:00 CDT, Duration: 30 day, Stop date: 03/10/17 13:54: 00 CDT Notes: (Same as: BD Posiflush) Start Date: 02/08/17 Stop Date: 02/10/17 Status: Discontinuedsimethicone 160 mg, 2 tab, Route: PO, Drug form: CHEWTAB, Q8H, Dosing Weight 100, kg, PRN Gas, Start date: 02/08/17 13:55:00 CDT, Duration: 30 day, Stop date: 03/10/17 13 :54:00 CDT Notes: (Same as: Mylicon) Start Date: 02/08/17 Stop Date: 02/10/17 Status: Discontinuedterbutaline 0.25 mg, 0.25 mL, Route: SUB-Q, Drug form: INJ, ONCALL, Dosing Weight 100, kg, PRN Other -See Comment, Start date: 02/08/17 10:30:00 CDT, Duration: 1 doses or times, Stop date: Limited # of times Notes: DO NOT USE IN PARARESCUE MANAGER AREA(Same As: Brethine) Start Date: 02/08/17 Stop Date: 02/08/17 Status: DiscontinuedTylenol with Codeine #3 oral tablet 1 tab, PO, Q6H, PRN Pain, X 7 day, # 28 tab, 0 Refill(s) Start Date: 02/10/17 Stop Date: 02/17/17 Status: OrderedVicoprofen 7.5 mg-200 mg oral tablet 1 tab, Route: PO, Drug Form: TAB, Dosing Weight 100, kg, Q6H, PRN Pain Score 7- 10, Start date: 02/08/17 17:00:00 CDT, Duration: 24 hr, Stop date: 02/09/17 16: 59:00 CDT Notes: (Same as: Vicoprofen) Start Date: 02/08/17 Stop Date: 02/09/17 Status: Completedzolpidem 5 mg, 1 tab, Route: PO, Drug form: TAB, Bedtime, Dosing Weight 100, kg, PRN Insomnia, Start date: 02/08/17 13:55:00 CDT, Duration: 30 day, Stop date: 13:54:00 CDT Notes: (Same As: Devang) Start Date: 02/08/17 Stop Date: 02/10/17 Status: Discontinued Results BLOOD BANK RESULTS Most recent to oldest [Reference Range]: 1 2 ABO/Rh A POS *Unknown* (02/08/17 11:12 AM) Antibody Scrn Negative (02/08/17 11:12 AM) Rhig Reqd See Note 1 (02/08/17 11:12 AM) 1Result Comment: 02/08/2017 12:12 [id number] This patient is not a candidate for Rh(O)D immune globulin.IMMUNOLOGY Most recent to oldest [Reference Range]: 1 2 Treponemal Scr [Non Reactive] Non Reactive *NA* (02/08/17 11:12 AM) HIV. [Negative] Negative (02/08/17 11:12 AM) Hep Bs Ag [Negative] Negative *NA* (02/08/17 11:12 AM) HEMATOLOGY Most recent to oldest [Reference Range]: 1 2 WBC [3.7-10.4 K/CMM] 15.3 K/CMM 11.7 K/CMM *HI* *HI* (02/09/17 6:20 AM) (02/08/17 11:12 AM) RBC [4.20-5.40 M/CMM] 3.79 M/CMM 4.11 M/CMM *LOW* *LOW* (02/09/17 6:20 AM) (02/08/17 11:12 AM) Hgb [12.0-16.0 g/dL] 10.5 g/dL 11.4 g/dL *LOW* *LOW* (02/09/17 6:20 AM) (02/08/17 11:12 AM) Hct [36.0-48.0 %] 31.8 % 33.9 % *LOW* *LOW* (02/09/17 6:20 AM) (02/08/17 11:12 AM) MCV [80.0-98.0 fL] 84.1 fL 82.5 fL (02/09/17 6:20 AM) (02/08/17 11:12 AM) MCH [27.0-31.0 pg] 27.7 pg 27.9 pg (02/09/17 6:20 AM) (02/08/17 11:12 AM) MCHC [32.0-36.0 g/dL] 33.0 g/dL 33.8 g/dL (02/09/17 6:20 AM) (02/08/17 11:12 AM) RDW [11.5-14.5 %] 14.6 % 15.2 % *HI* *HI* (02/09/17:20 AM) (02/08/17 11:12 AM) Platelet [133-450 K/CMM] 314 K/CMM 330 K/CMM (02/09/17 6:20 AM) (02/08/17 11:12 AM) MPV [7.4-10.4 fL] 7.3 fL 7.4 fL *LOW* (02/08/17 11:12 AM) (02/09/17 6:20 AM) Segs [45.0-75.0 %] 77.5 % 73.5 % *HI* (02/08/17 11:12 AM) (02/09/17 6:20 AM) Lymphocytes [20.0-40.0 %] 11.8 % 17.7 % *LOW* *LOW* (02/09/17 6:20 AM) (02/08/17 11:12 AM) Monocytes [2.0-12.0 %] 9.4 % 7.3 % (02/09/17 6:20 AM) (02/08/17 11:12 AM) Eosinophils [0.0-4.0 %] 0.8 % 1.1 % (02/09/17 6:20 AM) (02/08/17 11:12 AM) Basophils [0.0-1.0 %] 0.5 % 0.4 % (02/09/17 6:20 AM) (02/08/17 11:12 AM) Segs-Bands # [1.5-8.1 K/CMM] 11.9 K/CMM 8.6 K/CMM *HI* *HI* (02/09/17 6:20 AM) (02/08/17 11:12 AM) Lymphocytes # [1.0-5.5 K/CMM] 1.8 K/CMM 2.1 K/CMM (02/09/17 6:20 AM) (02/08/17 11:12 AM) Monocytes # [0.0-0.8 K/CMM] 1.4 K/CMM 0.9 K/CMM *HI* *HI* (02/09/17 6:20 AM) (02/08/17 11:12 AM) Eosinophils # [0.0-0.5 K/CMM] 0.1 K/CMM 0.1 K/CMM (02/09/17 6:20 AM) (02/08/17 11:12 AM) Basophils # [0.0-0.2 K/CMM] 0.1 K/CMM (02/09/17 6:20 AM) Immunizations Not Given Vaccine Date Status Refusal Reason diphtheria/pertussis, acel/tetanus adult 02/10/17 Not Given Parent Or Guardian Refuses measles/mumps/rubella virus vaccine 02/10/17 Not Given Parent Or Guardian Refuses Procedures Procedure Date Related Diagnosis Body Site section 2008 section 2005 Dilation and curettage 2000 Tonsillectomy 01/23/98 Social History Social History Type Response Substance Abuse Use: None. Alcohol Past Smoking Status Former smoker; Started at age: 15.0; Previous treatment: None; Ready to change: Yes; Concerns about tobacco use in household: No; Exposure to Tobacco Smoke None; Cigarette Smoking Last 365 Days Yes; Reg Smoking Cessation Counseling No Assessment and Plan Extracted from: Title: Clinical Document Author: Balwinder Lema MD Date: 02/10/17 Discharge Summary [facility] Completed: Friday, FEBRUARY 10, 2017, 09:11 by Balwinder Lema MD RM: [id number] - 1P, BL LESLIER ELISE RIVERA 31y (: 1985) F Attending: Balwinder Lema MD Service: Family Practice Service Reason for Admission: 12/16, 02/17/17, 38 WEEKS 5 DAYS/HYPERTENSION IN / Working DRG: None Documented Code status: None Specified=FULL CODE Current diet: regular Isolation: None Documented Allergies: NKDA SUBJECTIVE Pt reports pain well controlled, denies fever or chills. She is voiding without difficulty, and is tolerating regular diet, passing flatus. Pt is ambulating independently. She desires discharge to home OBJECTIVE (no lab data in past 24 hours) Corley still necessary (Yes/No): Line still necessary (Yes/No): Vitals Tmp(F) Pulse BP RR SpO2 FIO2 02/10 00:25 ---- --- ----- 16 --- --- 02/09 19:37 98.0 85 125/72 16 --- --- 02/09 17:10 97.6 78 123/69 18 --- --- 02/09 13:00 97.4 80 121/77 18 --- --- 02/09 08:08 97.7 74 129/80 18 --- --- 24 Hr Tmax: 98.0F (36.67c) at 02/09 19:37 Vital Signs are the last 5 in the past 48 hours. Date Wt(kg) Wt(lb) Ht(cm) Ht(in) Method 02/08 (initial) 100.00 220.00 Measured 02/08 167.64 66.00 Stated I&O Record In Out Bal 02/09 24hr Tot 360 950 -590 02/08 24hr Tot 5514 7743 7027 Medications (29) Active Scheduled Meds (6): 02/09/17 docusate (Colace 100 mg oral capsule) 100 mg PO BID 02/08/17 ferrous sulfate 325 mg PO BID 02/08/17 ibuprofen 600 mg PO Q6H 02/08/17 labetalol 200 mg PO Q12H 02/09/17 multivitamin, ( Multivitamins oral tablet) 1 tab PO Daily 02/08/17 sodium chloride (Saline Flush 0.9%) 10 ml IVP Q12H Unscheduled Meds (3): 02/08/17 measles/mumps/rubella virus vaccine (M-M-R II) 0.5 mL SUB-Q ONCALL 02/08/17 naloxone 0.4 mg IVP ONCALL 02/08/17 tetanus/diphth/pertuss (Tdap) adult/adol (tetanus/diphth/pertussis ( Tdap) adult/adol 5 units-2 units-15.5 mcg/0.5 mL intramuscular suspension) 0.5 mL IM ONCALL PRN Meds (18): 02/08/17 acetaminophen-hydrocodone (acetaminophen-hydrocodone 325 mg-5 mg oral tablet) 1 tab PO Q4H 02/08/17 acetaminophen-hydrocodone (acetaminophen-hydrocodone 325 mg-10 mg oral tablet) 1 tab PO Q4H 02/08/17 acetaminophen 650 mg PO Q4H 02/08/17 bisacodyl 15 mg PO Daily 02/08/17 bisacodyl 10 mg FL PRN 02/08/17 diphenhydrAMINE 12.5 mg PO Q6H 02/08/17 docusate 100 mg PO BID 02/08/17 hydromorphone 0.3 mg IVP Q4H 02/08/17 lanolin topical (lanolin topical cream) 1 appl TOP PRN 02/08/17 nalbuphine 2 mg IVP Q2H 02/08/17 ondansetron 4 mg IVP Q8H 02/08/17 oxyCODONE (oxyCODONE 5 mg immediate release) 5 mg PO Q4H 02/08/17 oxyCODONE (oxyCODONE 5 mg/5 mL oral solution) 5 mg NG Q4H 02/08/17 oxyCODONE (oxyCODONE 5 mg immediate release) 10 mg PO Q4H 02/08/17 oxyCODONE (oxyCODONE 5 mg/5 mL oral solution) 10 mg NG Q4H 02/08/17 simethicone 160 mg PO Q8H 02/08/17 sodium chloride (Saline Flush 0.9%) 10 ml IVP PRN 02/08/17 zolpidem 5 mg PO Bedtime One Time Meds: None Continuous Infusions (2): 02/08/17 Lactated Ringers 1,000 mL 1,000 mL 125 ml/hr 02/08/17 oxytocin 30 units/NS 500 ml 30 unit 30 unit 42 ml/hr ASSESSMENT & EXAM Gen: NAD Neuro: A&O x 3 CV: RRR Lungs: CTA bilaterally Abd: soft, non-distended, fundus firm, below umbilicus, non-tender Inc: C/D/I, no eryythema or induration, non-tender, healing well : normal lochia Ext: trace LE edema, no calf pain PLAN & TREATMENT 31 y/o POD # 2 s/p Repeat LTCS 1. Post-: -doing well, no acute issues, stable for discharge to home -F/U 2 weeks -Rx for T3 and Ibuprofen for pain control -routine discharge instructions given 2. HTN: -BP stable, continue Labetalol 200mg BID 3. Mild anemia: -stable, continue oral iron with stool softener -pt with uncomplicated hospital course -admitted for scheduled repeat c/section on 02/08 -did well, pain initiall controlled with IV meds, now stable on oral meds -pt has met all d/c criteria, afebrila, voiding, passing flatus, tolerating diet -discharge to home today DIAGNOSES & PROBLEMS Ready for Discharge (Yes/No)? TEACHING ATTESTATION
--- OUTSIDE RECORDS SUMMARY | 2018-11-10 05:32 | XMS REPORT | Summary of Care ---
:1985 Author Organization [facility] Address [id number] [place] [id number] Encounter HQ Encntr_luis carlos(FIN) [id number] Date(s): 01/29/17 - 02/27/[address] [phone] Discharge Disposition: Home or Self Care Attending Physician: Balwinder Lema MD Referring Physician: Balwinder Lema MD Vital Signs No data available for this section Problem List Condition Effective Dates Status Health Status Informant Hypertension(Confirmed) 2015 Resolved Pre-eclampsia added to Active pre-existing hypertension(Confirmed) (Confirmed) 03/13/16 - 02/08/17 Resolved (Confirmed) 11/04/09 - 07/28/10 Resolved (Confirmed) 01/10/05 - 10/31/05 Resolved Allergies, Adverse Reactions, Alerts Substance Reaction Severity Status NKDA Active Medications No data available for this section Results No data available for this section Immunizations Not Given Vaccine Date Status Refusal Reason diphtheria/pertussis, acel/tetanus adult 02/10/17 Not Given Parent Or Guardian Refuses measles/mumps/rubella virus vaccine 02/10/17 Not Given Parent Or Guardian Refuses Procedures Procedure Date Related Diagnosis Body Site section 2009 section 2006 Dilation and curettage 2001 Tonsillectomy 01/23/98 Social History Social History Type [...]
[2018-11-10] MEDS ORDERED: NA CHLORIDE 0.9% 0 ML ONE (06:15)
--- NOTE | 2018-11-10 06:15 | EDPHYS ---
Physician Documentation [facility] Name: Savannah Lang Age: 33 yrs Sex: Female : 1985 Arrival Date: 11/10/2018 Time: 05:32 Bed 15 Private MD: ED Physician John Mckeon HPI: 11/10 05:53 This 33 yrs old Female presents to ER via Ambulatory with complaints of rn Urinary Problem. 05:53 The patient presents with urinary symptoms, dysuria, frequency, urgency. rn 05:53 Onset: The symptoms/episode began/occurred 2 day(s) ago. Modifying factors: The rn symptoms are alleviated by nothing, the symptoms are aggravated by urinating. Severity of symptoms: At their worst the symptoms were mild, in the emergency department the symptoms are unchanged. The patient has experienced a previous episode. The patient has not recently seen a physician. Reports lower abd cramping, lower back pain, and dysuria. NO fever/vomiting/diarrhea. . 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 - Social history:: Smoking status: Patient/guardian denies using tobacco, Patient/guardian denies using alcohol. - Ebola Screening: : No symptoms or risks identified at this time. - Family history:: not pertinent. - Hospitalizations: : No recent hospitalization is reported. ROS: 05:53 Constitutional: Negative for fever, chills, and weight loss, Cardiovascular: Negative rn for chest pain, palpitations, and edema, Respiratory: Negative for shortness of breath, cough, wheezing, and pleuritic chest pain, Abdomen/GI: + lower abd cramping : Negative for injury, bleeding, discharge, and swelling, MS/Extremity: Negative for injury and deformity, Skin: Negative for injury, rash, and discoloration, Neuro: Negative for headache, weakness, numbness, tingling, and seizure. Exam: 05:53 Constitutional: This is a well developed, well nourished patient who is awake, alert, rn and in no acute distress. Abdomen/GI: soft, mild suprapubic tenderness, no rebound Back: + bilateral CVAT. Skin: Warm, dry with normal turgor. Normal color with no rashes, no lesions, and no evidence of cellulitis. MS/ Extremity: Pulses equal, no cyanosis. Neurovascular intact. Full, normal range of motion. Equal circumference. Vital Signs: 05:33 BP 129 / 87; Pulse 67; Resp 18; Temp 98.6; Pulse Ox 99% ; Weight 104.33 kg (R); Height jb4 5 ft. 6 in. (167.64 cm) (R); Pain 10/10; 05:33 Body Mass Index 37.12 (104.33 kg, 167.64 cm) jb4 MDM: 05:43 Patient medically screened. rn 06:14 Differential diagnosis: urinary tract infection. Data reviewed: vital signs, nurses rn notes, lab test result(s), and as a result, I will discharge patient. Counseling: I had a detailed discussion with the patient and/or guardian regarding: the historical points, exam findings, and any diagnostic results supporting the discharge/admit diagnosis, lab results, the need for outpatient follow up, to return to the emergency department if symptoms worsen or persist or if there are any questions or concerns that arise at home. Special discussion: I discussed with the patient/guardian in detail that at this point there is no indication for admission to the hospital. It is understood, however, that if the symptoms persist or worsen the patient needs to return immediately for re-evaluation. ED course: No hx of kidney stones, story most consistent with UTI, no peritoneal signs. . 11/10 05:53 Order name: Urine Dipstick-Ancillary (obtain specimen); Complete Time: 06:12 rn 11/10 06:04 Order name: Urine Dipstick--Ancillary (enter results) ar5 11/10 06:04 Order name: Urine --Ancillary (enter results) [facility] 11/10 05:53 Order name: Urine Test (obtain specimen); Complete Time: 06:12 rn Administered Medications: 07:03 Drug: Cipro 500 mg Route: PO; jl7 07:03 Follow up: Response: Medication administered at discharge. jl7 Disposition: 11/10/18 06:15 Discharged to Home. Impression: Urinary tract infection, site not specified. - Condition is Stable. - Discharge Instructions: Dysuria, Urinary Tract Infection, Adult. - Prescriptions for Cipro 500 mg Oral Tablet - take 1 tablet by ORAL route every 12 hours for 7 days; 14 tablet. Tylenol- Codeine #3 300-30 mg Oral Tablet - take 1 tablet by ORAL route every 6 hours As needed; 20 tablet. - Medication Reconciliation Form, Thank You Letter, Antibiotic Education, Prescription Opioid Use form. - Follow up: Private Physician; When: As needed; Reason: Recheck today's complaints, Re-evaluation by your physician. - Problem is new. - Symptoms have improved. Signatures: Dispatcher [employer] EDMS John Mckeon MD MD rn Bryson, James RN RN jb4 Yassine Grove RN RN jl7 Corrections: (The following items were deleted from the chart) 07:04 06:15 11/10/2018 06:15 Discharged to Home. Impression: Urinary tract infection, site jl7 not specified. Condition is Stable. Forms are Medication Reconciliation Form, Thank You Letter, Antibiotic Education, Prescription Opioid Use. Follow up: Private Physician; When: As needed; Reason: Recheck today's complaints, Re-evaluation by your physician. Problem is new. Symptoms have improved. rn
--- NOTE | 2018-11-10 06:15 | ER ---
Nurse's Notes [facility] Name: Savannah Lang Age: 33 yrs Sex: Female : 1985 Arrival Date: 11/10/2018 Time: 05:32 Bed 15 Private MD: Diagnosis: Urinary tract infection, site not specified Presentation: 11/10 05:33 Presenting complaint: Patient states: I have had a UTI since Saturday and I think it jb4 has progressed into a kidney infection. I woke up this morning with severe lower back pain. 05:33 Transition of care: patient was not received from another setting of care. Onset of jb4 symptoms was November 10, 2018. Risk Assessment: Do you want to hurt yourself or someone else? Patient reports no desire to harm self or others. Initial Sepsis Screen: Does the patient meet any 2 criteria? No. Patient's initial sepsis screen is negative. Does the patient have a suspected source of infection? No. Patient's initial sepsis screen is negative. Care prior to arrival: None. 05:33 Method Of Arrival: Ambulatory jb4 05:33 Acuity: GUALBERTO 3 jb4 Triage Assessment: 05:33 General: Appears in no apparent distress. uncomfortable, Behavior is calm, cooperative. jb4 Pain: Complains of pain in low back area. EENT: No signs and/or symptoms were reported regarding the EENT system. Neuro: Level of Consciousness is awake, alert, obeys commands, Oriented to person, place, time, situation. Cardiovascular: Patient's skin is warm and dry. Respiratory: Airway is patent Respiratory effort is even, unlabored, Respiratory pattern is regular, symmetrical. GI: No signs and/or symptoms were reported involving the gastrointestinal system. : Reports pain in lower back with urination. Derm: Skin is intact, Skin is pink, warm \T\ dry. Musculoskeletal: Circulation, motion, and sensation intact. 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 - Social history:: Smoking status: Patient/guardian denies using tobacco, Patient/guardian denies using alcohol. - Ebola Screening: : No symptoms or risks identified at this time. - Family history:: not pertinent. - Hospitalizations: : No recent hospitalization is reported. Vital Signs: 05:33 BP 129 / 87; Pulse 67; Resp 18; Temp 98.6; Pulse Ox 99% ; Weight 104.33 kg (R); Height jb4 5 ft. 6 in. (167.64 cm) (R); Pain 10/10; 05:33 Body Mass Index 37.12 (104.33 kg, 167.64 cm) jb4 ED Course: 05:32 Patient arrived in ED. es 05:33 Arm band placed on left wrist. jb4 05:43 John Mckeon MD is Attending Physician. rn 05:46 Lester Newell, RN is Primary Nurse. jb4 05:48 Triage completed. jb4 07:03 No provider procedures requiring assistance completed. Patient did not have IV access jl7 during this emergency room visit. Administered Medications: 07:03 Drug: Cipro 500 mg Route: PO; jl7 07:03 Follow up: Response: Medication administered at discharge. jl7 Outcome: 06:15 Discharge ordered by . rn 07:03 Discharged to home ambulatory. jl7 07:03 Condition: stable 07:03 Discharge instructions given to patient, Instructed on discharge instructions, follow up and referral plans. medication usage, Demonstrated understanding of instructions, follow-up care, medications, Prescriptions given X 2. 07:04 Patient left the ED. jl7 Signatures: Lilly Matos Roman, MD MD rn Bryson, James RN KATJA jb4 Yassine Grove RN RN jl7 Corrections: (The following items were deleted from the chart) 05:54 05:33 : Reports jb4 jb4
[2018-11-10] MEDS ORDERED: CIPROFLOXACIN HCL 500 MG TAB ONE (07:11)
[2018-11-10 09:19] LABS: Urine Blood 3+ (NEG); Urine Glucose NEGATIVE (NEG); Urine Protein 2+ (NEG)
== END 2018-11-10 07:04 | disposition home or self-care (01) ==
LOC: ER 05:28
DX: N39.0 Urinary tract infection, site not specified (principal); I10 Essential (primary) hypertension; E03.9 Hypothyroidism, unspecified; F41.9 Anxiety disorder, unspecified
CPT/HCPCS: 81003; 81025; 99283; J7030